=== PATIENT | female | born 1970 | race Caucasian/White ===

== ENCOUNTER 2024-07-03 14:38 | Emergency (ER) | payer OTHER, SELFPAY ==
[2024-07-03] VITALS (8 sets, daily range): BP systolic 134–210; BP diastolic 87–104; PULSE 98–134; RESP 9–18; TEMP 37–37.1; O2SAT 95–100; BMI 29.0
--- NOTE | 2024-07-03 15:01 | ED_ITS ---
Discharge Plan Disposition Patient Disposition: Home, Self-Care Condition: Good Prescriptions Prescriptions: New hydroxyzine HCl 25 mg tablet 25 mg PO Q6H PRN (Reason: nausea and vomiting) Qty: 100 0RF Referrals Follow up/Referrals: Provider,Referral, MD [Referring] - See instructions Activity Restrictions/Add. Instructions Additional Instructions/Restrictions: Follow-up with your primary care provider in the next week for reevaluation as well as annual physical and additional laboratory workup. Take the hydroxyzine every 6 hours as needed. If this medication seems to help you, have your primary care doctor continue it. If you do not feel that it works for you, you can stop taking it at any point. Please return to ED if your symptoms worsen, change in location, change in severity, new symptoms develop or if you become concerned for your health. Clinical Impressions Clinical Impression: Anxiety, Palpitations Instructions Patient Instructions: DI for Anxiety -- Adult Print Language Print Language: Turkmen Discharge ED Provider: Sintia Kang General Adult HPI <Cherrie Hernandez DO - Last Filed: 07/03/24 15:07> General Chief complaint: Arrhythmia/Palpitations Stated complaint: High BP, Tingling, Anxiety Time Seen by Provider: 07/03/24 14:49 History of Present Illness HPI narrative: This patient is a 53-year-old female who denies significant past medical history but does not follow regularly with a doctor presenting to the emergency department for evaluation of concern for anxiety, palpitations, high heart rate, and high blood pressure. She notes that this started a week ago when she took some [id number] cold medications for upper respiratory infection, and she thought that maybe was because of that so she stopped taking it and did not take it again. She denies taking any medications at home currently aside from taking ashwagandha as a supplement, which she has done for a long time with no recent changes in her routine or dosage. She does note a lot of recent emotional stressors. No fevers, cough, congestion, chest pain, shortness of breath, abdominal pain, nausea vomiting or changes bowel movements, leg pain or swelling, or other concerns. Related Data Previous Rx's ?Medication ?Instructions ?Recorded hydroxyzine HCl 25 mg tablet 25 mg PO Q6H PRN nausea and 07/03/24 vomiting #100 tabs Allergies Allergy/AdvReac Type Severity Reaction Status Date / Time Penicillin Allergy Unknown Uncoded 12/19/17 14:44 [facility] <Cherrie Hernandez DO - Last Filed: 07/03/24 15:07> [facility] Disclaimer: The information contained in this section may have been updated after the patient was seen, as this information can be updated by other users. Social History (Updated 07/03/24 @ 15:07 by Cherrie Hernandez DO) Smoking Status: Never smoker alcohol intake: never current occupational status: employed Travel in the last 8 weeks?: None Have you lived/traveled outside [place] in past 30 days?: No Contact w/someone who lives/traveled outside [place] past 30 days?: No Exposure to someone with infectious disease in past 14 days?: No Do you have a fever (greater than 100.4 F or 38 C)?: No Have you tested positive for COVID-19?: No Exposed to someone with COVID-19 in past 14 days?: No Do you have a sore throat?: No Do you have a cough?: No Do you have any weakness?: No Do you have any diarrhea?: No Are you experiencing any unusual bleeding?: No Do you have any muscle aches/pain?: No Do you have any abdominal pain?: No Are you experiencing loss of taste or smell?: No <Cherrie Hernandez DO - Last Filed: 07/03/24 15:07> ROS Obtained: Yes All systems reviewed & no additional complaints except as documented Physical Exam <Cherrie Hernandez DO - Last Filed: 07/03/24 15:07> General General appearance: alert, in no apparent distress and anxious Head Head exam: atraumatic and normocephalic Eye Eye exam: Present normal appearance, PERRL and EOMI ENT ENT exam: Present normal exam, normal oropharynx, mucous membranes moist and normal external ear exam Neck Neck exam: Present normal inspection, full ROM and trachea midline; Absent tenderness Chest Chest inspection: Present normal inspection and symmetric chest wall rise; Absent tenderness Respiratory Respiratory exam: Present normal lung sounds bilaterally; Absent respiratory distress, wheezes, stridor or accessory muscle use Cardiovascular Cardiovascular exam: Present normal rhythm and tachycardia Abdominal Exam Abdominal exam: Present soft; Absent distention, tenderness or guarding Extremities Exam Extremities exam: Present normal inspection, full ROM and normal capillary refill; Absent tenderness or edema Back Exam Back exam: Present normal inspection and full ROM; Absent tenderness Neurological Exam Neurological exam: Present alert, oriented X3, CN II-XII intact and normal gait; Absent motor sensory deficit Psychiatric Psychiatric exam: Present anxious Skin Skin exam: Present warm and dry Medical Decision Making <Cherrie Hernandez, DO - Last Filed: 07/03/24 15:07> Medical Records Medical records reviewed: Yes I reviewed the patient's medical records. Screening: Per USPSTF and CDC recommendations, given the prevalence of disease in our region, it is our hospital?s policy to screen for HIV and viral Hepatitis for all patients aged 18 and over and those with ongoing risk factors. Heriberto Inquiry Pt receiving controlled substance: No Vital Signs: 07/03/24 14:45 07/03/24 15:09 07/03/24 15:30 Temperature 98.6 F Temperature Source Oral Pulse Rate 103 H 101 H Pulse Rate [Left Radial] 134 H Respiratory Rate 18 14 Blood Pressure 199/101 H 210/103 H Blood Pressure [Right Arm] 134/87 Blood Pressure Mean Blood Pressure Mean [Right Arm] 102 Blood Pressure Source Blood Pressure Source [Right Arm] Automatic Cuff Blood Pressure Position Blood Pressure Position [Right Arm] Sitting 02 Sat by Pulse Oximetry 98 100 100 Oxygen Delivery Method Room Air Room Air Room Air 07/03/24 16:00 07/03/24 16:30 07/03/24 17:00 Temperature Temperature Source Pulse Rate 101 H 102 H 98 H Pulse Rate [Left Radial] Respiratory Rate 12 Blood Pressure 193/102 H 164/104 H 182/94 H Blood Pressure [Right Arm] Blood Pressure Mean 134 Blood Pressure Mean [Right Arm] Blood Pressure Source Blood Pressure Source [Right Arm] Blood Pressure Position Blood Pressure Position [Right Arm] 02 Sat by Pulse Oximetry 100 100 99 Oxygen Delivery Method 07/03/24 17:30 07/03/24 18:14 Temperature 98.7 F Temperature Source Oral Pulse Rate 103 H 100 H Pulse Rate [Left Radial] Respiratory Rate 9 L 10 L Blood Pressure 165/93 H 156/89 H Blood Pressure [Right Arm] Blood Pressure Mean 132 Blood Pressure Mean [Right Arm] Blood Pressure Source Automatic Cuff Blood Pressure Source [Right Arm] Blood Pressure Position Sitting Blood Pressure Position [Right Arm] 02 Sat by Pulse Oximetry 95 Oxygen Delivery Method Room Air Lab Data Lab results reviewed: Yes I reviewed the patient's lab results. Lab Results 07/03/24 15:05: WBC 10.1, RBC 5.48 H, Hgb 16.3 H, Hct 47.6 H, MCV 86.9, MCH 29.7, MCHC 34.2, RDW 12.4, Plt Count 408, MPV 9.3, Neut % (Auto) 72.6, Lymph % (Auto) 19.7, Mckenzie % (Auto) 6.5, Eos % (Auto) 0.2, Baso % (Auto) 0.8, Neut # (Auto) 7.4, Lymph # (Auto) 2.0, Mckenzie # (Auto) 0.7, Eos # (Auto) 0.0, Baso # (Auto) 0.1, D-Dimer 0.46, Sodium 138, Potassium 3.5, Chloride 100, Carbon Dioxide 30, Anion Gap 11.5, BUN 9, Creatinine 0.80, Estimated GFR 75, Est GFR ( Amer) 90, Glucose 119 H, Calcium 10.1, Magnesium 2.3, Total Bilirubin 0.5, AST 57 H, ALT 69, Alkaline Phosphatase 85, Troponin I < 0.01, Total Protein 8.8 H, Albumin 5.3 H, Globulin 3.5 H, Albumin/Globulin Ratio 1.5, TSH 3.71, T hyroxine (T4) 13.5 H 07/03/24 15:05 07/03/24 15:05 Orders (Tests/Meds): ED MEDICATIONS Discontinued Medications Generic Name Dose Route Start Last Admin Trade Name Freq PRN Reason Stop Dose Admin Lactated Ringer's 1,000 mls @ 999 mls/hr 07/03/24 14:56 07/03/24 16:11 Lactated Ringer's 1000 Ml Bag IV 07/03/24 15:56 999 mls/hr .Q1H1M ONE Administration Lorazepam 1 mg 07/03/24 14:56 07/03/24 16:10 Lorazepam 2mg/Ml Vial IV 07/03/24 14:57 1 mg ONCE ONE Administration Sodium Chloride 10 ml 07/03/24 14:56 Sodium Chloride 0.9% 10ml Vial IV 08/02/24 14:55 NEEDED PRN to Dilute Lorazepam inj ORDERS Category Date Time Status Complete Blood Count Auto Diff Stat Lab 07/03/24 15:05 Completed Comprehensive Metabolic Panel Stat Lab 07/03/24 15:05 Completed D-Dimer Stat Lab 07/03/24 15:05 Completed MAG [Magnesium] Stat Lab 07/03/24 15:05 Completed T4 (Thyroxine) Stat Lab 07/03/24 15:05 Completed TSH [Thyroid Stimulating Hormone] Stat Lab 07/03/24 15:05 Completed Trop I [Troponin I] Stat Lab 07/03/24 15:05 Completed Medical Decision Narrative: In summary, this patient is a 53-year-old female presenting to the Emergency Department for evaluation of anxiety, palpitations, high heart rate, high blood pressure. Differential diagnoses considered include but are not limited to hyperthyroidism, anxiety, panic attacks, dysrhythmia, electrolyte derangements. Ruling out the most morbid conditions drove assessment. On exam, the patient is very anxious appearing, tearful, actively crying. She is tachycardic with heart rate in the 120s to 130s but otherwise vitals are reassuring cardiac telemetry. No hypoxia or significant increased work of breathing. Cardiopulmonary and abdominal exams are benign. I feel present is the likely manifestation of anxiety, but will perform workup to rule out organic causes. Workup included CBC, CMP, troponin, TSH, T4, magnesium, D-dimer, EKG. Patient was given a bolus of IV fluids as well as IV Ativan for symptomatic improvement. Patient care signed out the oncoming provider, Dr. Kang, pending workup and disposition. <Sintia Kang MD - Last Filed: 07/03/24 23:53> Vital Signs: 07/03/24 14:45 07/03/24 15:09 07/03/24 15:30 Temperature 98.6 F Temperature Source Oral Pulse Rate 103 H 101 H Pulse Rate [Left Radial] 134 H Respiratory Rate 18 14 Blood Pressure 199/101 H 210/103 H Blood Pressure [Right Arm] 134/87 Blood Pressure Mean Blood Pressure Mean [Right Arm] 102 Blood Pressure Source Blood Pressure Source [Right Arm] Automatic Cuff Blood Pressure Position Blood Pressure Position [Right Arm] Sitting 02 Sat by Pulse Oximetry 98 100 100 Oxygen Delivery Method Room Air Room Air Room Air 07/03/24 16:00 07/03/24 16:30 07/03/24 17:00 Temperature Temperature Source Pulse Rate 101 H 102 H 98 H Pulse Rate [Left Radial] Respiratory Rate 12 Blood Pressure 193/102 H 164/104 H 182/94 H Blood Pressure [Right Arm] Blood Pressure Mean 134 Blood Pressure Mean [Right Arm] Blood Pressure Source Blood Pressure Source [Right Arm] Blood Pressure Position Blood Pressure Position [Right Arm] 02 Sat by Pulse Oximetry 100 100 99 Oxygen Delivery Method 07/03/24 17:30 07/03/24 18:14 Temperature 98.7 F Temperature Source Oral Pulse Rate 103 H 100 H Pulse Rate [Left Radial] Respiratory Rate 9 L 10 L Blood Pressure 165/93 H 156/89 H Blood Pressure [Right Arm] Blood Pressure Mean 132 Blood Pressure Mean [Right Arm] Blood Pressure Source Automatic Cuff Blood Pressure Source [Right Arm] Blood Pressure Position Sitting Blood Pressure Position [Right Arm] 02 Sat by Pulse Oximetry 95 Oxygen Delivery Method Room Air Lab Data Lab Results 07/03/24 15:05: WBC 10.1, RBC 5.48 H, Hgb 16.3 H, Hct 47.6 H, MCV 86.9, MCH 29.7, MCHC 34.2, RDW 12.4, Plt Count 408, MPV 9.3, Neut % (Auto) 72.6, Lymph % (Auto) 19.7, Mckenzie % (Auto) 6.5, Eos % (Auto) 0.2, Baso % (Auto) 0.8, Neut # (Auto) 7.4, Lymph # (Auto) 2.0, Mckenzie # (Auto) 0.7, Eos # (Auto) 0.0, Baso # (Auto) 0.1, D-Dimer 0.46, Sodium 138, Potassium 3.5, Chloride 100, Carbon Dioxide 30, Anion Gap 11.5, BUN 9, Creatinine 0.80, Estimated GFR 75, Est GFR ( Amer) 90, Glucose 119 H, Calcium 10.1, Magnesium 2.3, Total Bilirubin 0.5, AST 57 H, ALT 69, Alkaline Phosphatase 85, Troponin I < 0.01, Total Protein 8.8 H, Albumin 5.3 H, Globulin 3.5 H, Albumin/Globulin Ratio 1.5, TSH 3.71, T hyroxine (T4) 13.5 H Orders (Tests/Meds): ED MEDICATIONS Discontinued Medications Generic Name Dose Route Start Last Admin Trade Name Freq PRN Reason Stop Dose Admin Lactated Ringer's 1,000 mls @ 999 mls/hr 07/03/24 14:56 07/03/24 16:11 Lactated Ringer's 1000 Ml Bag IV 07/03/24 15:56 999 mls/hr .Q1H1M ONE Administration Lorazepam 1 mg 07/03/24 14:56 07/03/24 16:10 Lorazepam 2mg/Ml Vial IV 07/03/24 14:57 1 mg ONCE ONE Administration Sodium Chloride 10 ml 07/03/24 14:56 Sodium Chloride 0.9% 10ml Vial IV 08/02/24 14:55 NEEDED PRN to Dilute Lorazepam inj ORDERS Category Date Time Status Complete Blood Count Auto Diff Stat Lab 07/03/24 15:05 Completed Comprehensive Metabolic Panel Stat Lab 07/03/24 15:05 Completed D-Dimer Stat Lab 07/03/24 15:05 Completed MAG [Magnesium] Stat Lab 07/03/24 15:05 Completed T4 (Thyroxine) Stat Lab 07/03/24 15:05 Completed TSH [Thyroid Stimulating Hormone] Stat Lab 07/03/24 15:05 Completed Trop I [Troponin I] Stat Lab 07/03/24 15:05 Completed Medical Decision Narrative: In summary, this patient is a 53-year-old female presenting to the Emergency Department for evaluation of anxiety, palpitations, high heart rate, high blood pressure. Differential diagnoses considered include but are not limited to hyperthyroidism, anxiety, panic attacks, dysrhythmia, electrolyte derangements. Ruling out the most morbid conditions drove assessment. On exam, the patient is very anxious appearing, tearful, actively crying. She is tachycardic with heart rate in the 120s to 130s but otherwise vitals are reassuring cardiac telemetry. No hypoxia or significant increased work of breathing. Cardiopulmonary and abdominal exams are benign. I feel present is the likely manifestation of anxiety, but will perform workup to rule out organic causes. Workup included CBC, CMP, troponin, TSH, T4, magnesium, D-dimer, EKG. Patient was given a bolus of IV fluids as well as IV Ativan for symptomatic improvement. Patient care signed out the oncoming provider, Dr. Kang, pending workup and disposition. Jorge Luis: On my assumption of care, patient resting with heart rates closer to 100. She does not appear to be in any distress. Patient's labs demonstrated no leukocytosis, increased hemoglobin of 16.3, no thrombocytopenia. Patient's D- dimer was negative. CMP with no actionable findings. TSH normal with free T4 slightly elevated. Troponin negative. Patient advised to follow-up with her primary care provider for additional testing. We discussed starting hydroxyzine in the interim to which patient agreed. Patient ultimately discharged in stable condition. Sintia Kang MD Critical Care <Cherrie Hernandez, - Last Filed: 07/03/24 15:07> Critical Care Time Critical Care Time: No
--- NOTE | 2024-07-03 15:06 | ECG_ITS ---
APPROVED REPORT Exam: Resting ECG HR:99 bpm ECG Measurements Heart Rate 99 AXES MA 170 P 70 QRSd 88 QRS 78 QT 328 T 62 QTc 385 Conclusion SINUS RHYTHM MODERATE ST DEPRESSION [0.05+ mV ST DEPRESSION] ABNORMAL ECG UNCONFIRMED REPORT Electronically signed by : MIRIAN ARCHULETA, 07/06/2024 23:45:50
[2024-07-03 15:13] LABS: Basophils # 0.1 K/mm3 (0-0.2); Basophils % 0.8 % (0.1-2.0); Eosinophils % 0.2 % (0.1-12.0); Hematocrit 47.6 % (37.0-47.0); Hemoglobin 16.3 g/dL (12.2-16.2); Immature Granulocytes # 0.02 10^3uL; Immature Granulocytes % 0.2 %; Lymphocytes % 19.7 % (10-50); Mean Corpuscular HGB Conc 34.2 g/dL (31.8-35.4); Mean Corpuscular Hemoglobin 29.7 pg (27.0-31.2); Mean Corpuscular Volume 86.9 fl (81-99); Mean Platelet Volume 9.3 fl (7.4-10.4); Monocytes # 0.7 K/mm3 (0.1-1.0); Monocytes % 6.5 % (1.7-9.3); Neutrophils # 7.4 K/mm3 (1.8-7.8); Neutrophils % 72.6 % (37.0-80.0); Nucleated Red Blood Cells # 0 10^3/uL; Nucleated Red Blood Cells % 0 %; Platelet Count 408 K/mm3 (142-424); Red Blood Count 5.48 M/mm3 (4.20-5.40); Red Cell Distribution Width 12.4 % (11.5-17.5); Red Cell Distribution Width-SD 39.3 fL; White Blood Count 10.1 K/mm3 (4.8-10.8)
[2024-07-03 15:23] LABS: Alanine Aminotransferase 69 U/L (12-78); Albumin Level 5.3 g/dl (3.5-5.0); Albumin/Globulin Ratio 1.5 (1.1-1.8); Alkaline Phosphatase 85 U/L (38-126); Anion Gap 11.5 mEq/L (5-15); Aspartate Amino Transferase 57 U/L (14-36); Bilirubin,Total 0.5 mg/dl (0.2-1.3); Blood Urea Nitrogen 9 mg/dl (7-17); Calcium 10.1 mg/dl (8.4-10.2); Carbon Dioxide 30 mmol/L (22.0-30.0); Chloride 100 mmol/L (98-107); Estimated Glomerular Filt Rate 75 ml/min (>60); GFR (African American) 90 ML/MIN (>60); Globulin 3.5 g/dL (1.3-3.2); Glucose 119 mg/dl (74-100); Magnesium 2.3 mg/dl (1.6-2.3); Potassium 3.5 mmoL/L (3.5-5.1); Sodium 138 mmol/L (136-145); Total Protein,Serum 8.8 g/dl (6.3-8.2)
[2024-07-03 15:27] LABS: D-Dimer 0.46 ug/mL (0.0-0.5)
[2024-07-03 15:41] LABS: T4 (Thyroxine) 13.5 ug/dl (5.53-11.0)
[2024-07-03 15:45] LABS: Troponin I < 0.01 ng/ml (0.00-0.034)
[2024-07-03 15:55] LABS: Thyroid Stimulating Hormone 3.71 uIU/mL (0.465-4.68)
[2024-07-03] MEDS: LORazepam 2MG/ML VIAL 1 MG IV (16:10)
[2024-07-03] MEDS: LACTATED RINGERS 1000ML 1,000 ML 999 ML IV (16:11)
--- NOTE | 2024-07-03 17:29 | PC.NURSE ---
rounded on patient, no needs voiced at this time.
--- NOTE | 2024-07-03 17:58 | PC.NURSE ---
pt rounded on no needs at this time.
== END 2024-07-03 18:15 | disposition home or self-care (01) ==
PROVIDERS: Emergency Medicine; Emergency Provider Student in an Organized Health Care Education/Training Program; PCP Internal Medicine
DX: R00.2 Palpitations (principal); R00.0 Tachycardia, unspecified; R03.0 Elevated blood-pressure reading, without diagnosis of hypertension; F41.9 Anxiety disorder, unspecified
CPT/HCPCS: 80053; 83735; 84436; 84443; 84484; 85025; 85378; 93005; 96361; 96374; 99284; J2060; J7120

== ENCOUNTER 2024-11-08 10:17 | Outpatient (CLI) | payer OTHER, SELFPAY ==
--- NOTE | 2024-11-08 16:43 | ECG_ITS ---
APPROVED REPORT Exam: Resting ECG HR:104 bpm ECG Measurements Heart Rate 104 AXES TX 140 P 41 QRSd 92 QRS 34 QT 329 T 54 QTc 390 Conclusion SINUS TACHYCARDIA POSSIBLE LEFT ATRIAL ENLARGEMENT [-0.1mV P-WAVE IN V1/V2] MODERATE ST DEPRESSION [0.05+ mV ST DEPRESSION] ABNORMAL ECG No STEMI Electronically signed by : EDUARDO MCCAIN, 11/09/2024 00:55:02
== END 2024-11-08 23:59 | disposition home or self-care (01) ==
LOC: LAB.DROPOF 11-10 10:18
PROVIDERS: PCP Internal Medicine; Visit Provider Nurse Practitioner Family
DX: R69 Illness, unspecified (principal)
CPT/HCPCS: 93005

== ENCOUNTER 2024-11-08 16:16 | Emergency (ER) | payer OTHER, SELFPAY ==
[2024-11-08] VITALS (11 sets, daily range): BP systolic 179–219; BP diastolic 95–130; PULSE 91–113; RESP 10–25; TEMP 36.6–36.7; O2SAT 97–99; BMI 29.9
--- NOTE | 2024-11-08 16:31 | XR_ITS ---
PROCEDURE INFORMATION: Exam: XR Chest Exam date and time: 11/08/2024 4:56 PM Age: 54 years old Clinical indication: Pain; Chest pressure; Additional info: HTN cp TECHNIQUE: Imaging protocol: Radiologic exam of the chest. Views: 1 view. Total images: 1 COMPARISON: No relevant prior studies available. FINDINGS: Lungs: Granulomatous density noted within the left upper lobe. Pleural spaces: No pleural effusion. No pneumothorax. Heart/Mediastinum: No cardiomegaly. Bones/joints: Unremarkable. IMPRESSION: No acute cardiopulmonary abnormalities.
--- NOTE | 2024-11-08 16:32 | ED_ITS ---
<Statement entered by Walker Dill DO - 11/08/24 23:48> I was consulted by the SHANNAN, and we discussed the complexity of problems being addressed. I approved the treatment and management plan for this patient's care in the emergency department, thus performing a substantive portion of the medical decision making. Walker Dill DO Discharge Plan Disposition Patient Disposition: Home, Self-Care Prescriptions Prescriptions: New hydroxyzine HCl 25 mg tablet 25 mg PO BID PRN (Reason: anxiety) 10 Days Qty: 20 0RF carvedilol 12.5 mg tablet 12.5 mg PO ONCE 14 Days Qty: 14 0RF Rx Instructions: must administer with a meal/food No Action hydroxyzine HCl 25 mg tablet 25 mg PO Q6H PRN (Reason: nausea and vomiting) 7 Days Qty: 42 0RF Referrals Follow up/Referrals: Camacho Ball MD [Primary Care Provider, Medical] - See instructions Eric Iniguez DO [Staff Physician, Family Practice] - See instructions Activity Restrictions/Add. Instructions Additional Instructions/Restrictions: Today you were evaluated in the emergency department. Your blood pressure was high, you were given a dose of carvedilol which helped with your hypertension. You were also given hydroxyzine for anxiety. Please take these medications as directed. Please call Dr. Iniguez listed above for a primary care appointment. Remember to keep a log of your blood pressures. Return to the ED for any worsening of your condition. L Clinical Impressions Clinical Impression: Anxiety, Elevated blood pressure reading Instructions Patient Instructions: Anxiety Disorders, DI for High Blood Pressure Print Language Print Language: Citizen Of [place] Discharge ED Provider: Walker Dill HPI <Hali Sandoval APRN - Last Filed: 11/08/24 20:36> General Chief Complaint: Anxiety Stated Complaint: High blood pressure Time Seen by Provider: 11/08/24 16:24 History of Present Illness HPI narrative: patient is a 54-year-old female with no significant past medical history who presents to the ED for complaints of anxiety and elevated blood pressure. Patient states that she went to urgent care today for her anxiety, was sent to the ED for further evaluation. Patient states she was evaluated in June for anxiety, given a prescription for hydroxyzine which helps her symptoms. She is not established with a PCP, has never been diagnosed with hypertension or anxiety officially. Related Data Previous Rx's ?Medication ?Instructions ?Recorded carvedilol 12.5 mg tablet 12.5 mg PO ONCE 14 days #14 tabs 11/08/24 hydroxyzine HCl 25 mg tablet 25 mg PO BID PRN anxiety 10 days 11/08/24 #20 tabs hydroxyzine HCl 25 mg tablet 25 mg PO Q6H PRN nausea a nd 11/08/24 vomiting 7 days #42 tabs Allergies Allergy/AdvReac Type Severity Reaction Status Date / Time Penicillin Allergy Unknown Uncoded 02/13/17 14:44 PFSH <Hali Sandoval APRN - Last Filed: 11/08/24 20:36> [facility] Disclaimer: The information contained in this section may have been updated after the patient was seen, as this information can be updated by other users. Social History Smoking Status: Never smoker alcohol intake: never current occupational status: employed Travel in the last 8 weeks?: None Have you lived/traveled outside [place] in past 30 days?: No Contact w/someone who lives/traveled outside US past 30 days?: No Exposure to someone with infectious disease in past 14 days?: No Do you have a fever (greater than 100.4 F or 38 C)?: No Have you tested positive for COVID-19?: No Exposed to someone with COVID-19 in past 14 days?: No Do you have a sore throat?: No Do you have a cough?: No Do you have any weakness?: No Do you have any diarrhea?: No Are you experiencing any unusual bleeding?: No Do you have any muscle aches/pain?: No Do you have any abdominal pain?: No Are you experiencing loss of taste or smell?: No <Hali Sandoval APRN - Last Filed: 11/08/24 20:36> ROS Obtained: Yes Systems reviewed as appropriate & no additional complaints except as documented Physical Exam <Hali Sandoval APRN - Last Filed: 11/08/24 20:36> General General appearance: alert Head Head exam: atraumatic Eye Eye exam: Present PERRL and EOMI; Absent nystagmus ENT ENT exam: Present normal exam Neck Neck exam: Present full ROM Chest Chest inspection: Present normal inspection Respiratory Respiratory exam: Present normal lung sounds bilaterally Cardiovascular Cardiovascular exam: Present tachycardia Abdominal Exam Abdominal exam: Present soft; Absent tenderness Extremities Exam Extremities exam: Present full ROM Back Exam Back exam: Present full ROM Neurological Exam Neurological exam: Present alert, oriented X3 and normal gait; Absent motor sensory deficit Skin Skin exam: Present warm and dry HEART Score <Hali Sandoval APRN - Last Filed: 11/08/24 20:36> HEART Score HEART Score assessment performed?: No Critical Care <Hali Sandoval APRN - Last Filed: 11/08/24 20:36> Critical Care Time Critical Care Time: No Medical Decision Making <Hali Sandoval APRN - Last Filed: 11/08/24 20:36> [place] Inquiry Pt receiving controlled substance: No Vital Signs Vital Signs: 11/08/24 16:28 11/08/24 17:12 11/08/24 17:23 Temperature 97.9 F Temperature Source Oral Pulse Rate 105 H 108 H Pulse Rate [Right Radial] 113 H Respiratory Rate 15 25 H 12 Blood Pressure 190/117 H 181/104 H Blood Pressure [Right Arm] 213/130 H Blood Pressure Mean Blood Pressure Mean [Right Arm] 157 Blood Pressure Source Blood Pressure Source [Right Arm] Automatic Cuff Blood Pressure Position Blood Pressure Position [Right Arm] Supine 02 Sat by Pulse Oximetry 98 99 98 Oxygen Delivery Method Room Air 11/08/24 17:30 11/08/24 17:58 11/08/24 18:00 Temperature Temperature Source Pulse Rate 111 H 112 H 107 H Pulse Rate [Right Radial] Respiratory Rate 13 12 14 Blood Pressure 207/106 H 219/128 H 194/106 H Blood Pressure [Right Arm] Blood Pressure Mean Blood Pressure Mean [Right Arm] Blood Pressure Source Blood Pressure Source [Right Arm] Blood Pressure Position Blood Pressure Position [Right Arm] 02 Sat by Pulse Oximetry 98 98 97 Oxygen Delivery Method 11/08/24 18:45 11/08/24 19:00 11/08/24 19:09 Temperature Temperature Source Pulse Rate 107 H 106 H 101 H Pulse Rate [Right Radial] Respiratory Rate 17 14 14 Blood Pressure 208/116 H 203/129 H 189/106 H Blood Pressure [Right Arm] Blood Pressure Mean 141 153 135 Blood Pressure Mean [Right Arm] Blood Pressure Source Blood Pressure Source [Right Arm] Blood Pressure Position Blood Pressure Position [Right Arm] 02 Sat by Pulse Oximetry 98 99 99 Oxygen Delivery Method 11/08/24 19:24 11/08/24 20:05 Temperature 98.0 F Temperature Source Oral Pulse Rate 97 H 91 H Pulse Rate [Right Radial] Respiratory Rate 10 L 20 Blood Pressure 180/114 H 179/95 H Blood Pressure [Right Arm] Blood Pressure Mean 143 Blood Pressure Mean [Right Arm] Blood Pressure Source Automatic Cuff Blood Pressure Source [Right Arm] Blood Pressure Position Supine Blood Pressure Position [Right Arm] 02 Sat by Pulse Oximetry 99 Oxygen Delivery Method Room Air Lab Data Labs: Lab Results 11/08/24 16:45: WBC 8.5, RBC 5.28, Hgb 15.9, Hct 45.9, MCV 86.9, MCH 30.1, MCHC 34.6, RDW 12.7, Plt Count 290, MPV 9.8, Neut % (Auto) 64.1, Lymph % (Auto) 24.5, Mchenry % (Auto) 9.6 H, Eos % (Auto) 0.9, Baso % (Auto) 0.7, Neut # (Auto) 5.4, Lymph # (Auto) 2.1, Mchenry # (Auto) 0.8, Eos # (Auto) 0.1, Baso # (Auto) 0.1, D- Dimer 0.48, Sodium 139, Potassium 3.5, Chloride 99, Carbon Dioxide 28, Anion Gap 15.5 H, BUN 11, Creatinine 1.00, Estimated Creat Clear 82, Estimated GFR 58 L, Est GFR ( Amer) 70, Glucose 122 H, Calcium 10.0, Total Bilirubin 0.5, AST 59 H, ALT 60, Alkaline Phosphatase 83, Troponin I < 0.01, Total Protein 8.8 H, Albumin 4.9, Globulin 3.9 H, Albumin/Globulin Ratio 1.3, TSH 5.04 H 11/08/24 16:54: Free T4 1.28, HCV Ab BHARGAV w/Rflx PCR Qn Negative, HIV Ag/Ab Combo Qual Negative 11/08/24 : Urine Color Yellow, Urine Appearance Clear, Urine pH 7.0, Ur Specific [place] 1.010, Urine Protein Negative, Urine Glucose (UA) Negative, Urine Ketones Negative, Urine Blood Negative, Urine Nitrate Negative, Urine Bilirubin Negative, Urine Urobilinogen 0.2, Ur Leukocyte Esterase Negative, Urine RBC None, Urine WBC 3-5, Ur Squamous Epith Cells 3-5, Urine Bacteria 2+, Urine HCG, Qual Negative, Urine Opiates Screen Negative, Urine Methadone Screen Negative, Ur Barbituates Screen Negative, Ur Phencyclidine Scrn Negative, Ur Amphetamines Screen Negative, U Benzodiazepines Scrn Negative, Urine Cocaine Screen Negative, U Marijuana (THC) Screen Negative 11/08/24 16:45 11/08/24 16:45 Response Orders (Tests/Meds): ED MEDICATIONS Discontinued Medications Generic Name Dose Route Start Last Admin Trade Name Zelda PRN Reason Stop Dose Admin Carvedilol 12.5 mg 11/08/24 18:26 11/08/24 18:44 Carvedilol 12.5mg Tablet PO 11/08/24 18:27 12.5 mg ONCE ONE Administration Diazepam 2 mg 11/08/24 17:33 11/08/24 17:37 Diazepam 10mg/2ml Syringe IV 11/08/24 17:34 2 mg ONCE ONE Administration Hydroxyzine Pamoate 50 mg 11/08/24 16:31 11/08/24 16:43 Hydroxyzine Pamoate 25mg Capsule PO 11/08/24 16:32 50 mg ONCE ONE Administration ORDERS Category Date Time Status CXR --portable [XR chest portable] Stat Exams 11/08/24 16:31 Completed POCUS Point of Care (ER Only) Stat Exams 11/08/24 17:32 Completed CBC w/Auto Diff [Complete Blood Count Auto Diff] Stat Lab 11/08/24 16:45 Completed CMP [Comprehensive Metabolic Panel] Stat Lab 11/08/24 16:45 Completed D-Dimer Stat Lab 11/08/24 16:45 Completed Free T4 (Free Thyroxine) Stat Lab 11/08/24 16:54 Completed HIV Combo Stat Lab 11/08/24 16:54 Completed Hepatitis C Ab Qual. W/ RFX Stat Lab 11/08/24 16:54 Completed TSH [Thyroid Stimulating Hormone] Stat Lab 11/08/24 16:45 Completed Trop I [Troponin I] Stat Lab 11/08/24 16:45 Completed UDS [Drug Screen,Urine] Stat Lab 11/08/24 Completed Urinalysis and Microscopic Stat Lab 11/08/24 Completed Urine , HCG Qual. Stat Lab 11/08/24 Completed Urine Culture Stat Micro 11/08/24 Received MDM Narrative Medical Decision Narrative: In summary, patient is a 54-year-old female with no significant past medical history who presents to the ED for complaints of anxiety and elevated blood pressure. Patient states that she went to urgent care today for her anxiety, was sent to the ED for further evaluation. Patient states she was evaluated in June for anxiety, given a prescription for hydroxyzine which helps her symptoms. She is not established with a PCP, has never been diagnosed with hypertension or anxiety officially. Patient states that her symptoms started today while she was sitting at [employer] with her spouse, denies any issues or significant events. States she is unsure why she is feeling this way. She states that she feels tingly when her anxiety occurs. Patient is unsure what her blood pressure is normally as she does not typically check it. Denies fever, chills, headache, visual disturbance, neck pain, chest pain, shortness of breath, abdominal pain, nausea, vomiting, dysuria. Differential diagnosis include elevated blood pressure, ACS, electrolyte abnormality, infectious process, among others. Upon initial evaluation patient is alert, oriented and cooperative. She is hypertensive, systolic in the 200s, tachycardic, rate 115, normal physical exam other than tachycardia. Discussed with patient we will proceed with workup including troponin, EKG and chest x-ray. We will symptomatically manage with 50 mg of hydroxyzine. She is agreeable to plan of care at this time. Upon reassessment, patient states she continues to be anxious and she continues to be hypertensive. Will administer carvedilol 12.5 mg p.o. CBC unremarkable for any leukocytosis, stable H&H. CMP overall unremarkable. Urinalysis unremarkable for any infectious process, no urinary symptoms. UDS negative. Troponin < 0.01. dimer 0.48. TSH 5.04, free T4 1.28. Chest x-ray unremarkable for any acute findings. Upon reassessment, patient's systolic blood pressure is down to 174. She states that she is feeling better. Shared decision making used, we discussed prescription for carvedilol and hydroxyzine. I advised her that the carvedilol has obviously helped her elevated blood pressure, however she will need to continue to monitor her blood pressure in the morning and evening, keep a log and call Dr. Iniguez's office first thing Sunday morning for an appointment. I advised her to take the hydroxyzine as directed. We discussed other management of anxiety. We discussed strict return precautions to the ED and patient verbalized understanding. She was ambulatory upon leaving the ED without difficulty. <Walker Dill, DO - Last Filed: 11/08/24 23:24> Medical Records Medical records reviewed: Yes I reviewed the patient's medical records. Vital Signs Vital Signs: 11/08/24 16:28 11/08/24 17:12 11/08/24 17:23 Temperature 97.9 F Temperature Source Oral Pulse Rate 105 H 108 H Pulse Rate [Right Radial] 113 H Respiratory Rate 15 25 H 12 Blood Pressure 190/117 H 181/104 H Blood Pressure [Right Arm] 213/130 H Blood Pressure Mean Blood Pressure Mean [Right Arm] 157 Blood Pressure Source Blood Pressure Source [Right Arm] Automatic Cuff Blood Pressure Position Blood Pressure Position [Right Arm] Supine 02 Sat by Pulse Oximetry 98 99 98 Oxygen Delivery Method Room Air 11/08/24 17:30 11/08/24 17:58 11/08/24 18:00 Temperature Temperature Source Pulse Rate 111 H 112 H 107 H Pulse Rate [Right Radial] Respiratory Rate 13 12 14 Blood Pressure 207/106 H 219/128 H 194/106 H Blood Pressure [Right Arm] Blood Pressure Mean Blood Pressure Mean [Right Arm] Blood Pressure Source Blood Pressure Source [Right Arm] Blood Pressure Position Blood Pressure Position [Right Arm] 02 Sat by Pulse Oximetry 98 98 97 Oxygen Delivery Method 11/08/24 18:45 11/08/24 19:00 11/08/24 19:09 Temperature Temperature Source Pulse Rate 107 H 106 H 101 H Pulse Rate [Right Radial] Respiratory Rate 17 14 14 Blood Pressure 208/116 H 203/129 H 189/106 H Blood Pressure [Right Arm] Blood Pressure Mean 141 153 135 Blood Pressure Mean [Right Arm] Blood Pressure Source Blood Pressure Source [Right Arm] Blood Pressure Position Blood Pressure Position [Right Arm] 02 Sat by Pulse Oximetry 98 99 99 Oxygen Delivery Method 11/08/24 19:24 11/08/24 20:05 Temperature 98.0 F Temperature Source Oral Pulse Rate 97 H 91 H Pulse Rate [Right Radial] Respiratory Rate 10 L 20 Blood Pressure 180/114 H 179/95 H Blood Pressure [Right Arm] Blood Pressure Mean 143 Blood Pressure Mean [Right Arm] Blood Pressure Source Automatic Cuff Blood Pressure Source [Right Arm] Blood Pressure Position Supine Blood Pressure Position [Right Arm] 02 Sat by Pulse Oximetry 99 Oxygen Delivery Method Room Air Lab Data Labs: Lab Results 11/08/24 16:45: WBC 8.5, RBC 5.28, Hgb 15.9, Hct 45.9, MCV 86.9, MCH 30.1, MCHC 34.6, RDW 12.7, Plt Count 290, MPV 9.8, Neut % (Auto) 64.1, Lymph % (Auto) 24.5, [place] % (Auto) 9.6 H, Eos % (Auto) 0.9, Baso % (Auto) 0.7, Neut # (Auto) 5.4, Lymph # (Auto) 2.1, [place] # (Auto) 0.8, Eos # (Auto) 0.1, Baso # (Auto) 0.1, D- Dimer 0.48, Sodium 139, Potassium 3.5, Chloride 99, Carbon Dioxide 28, Anion Gap 15.5 H, BUN 11, Creatinine 1.00, Estimated Creat Clear 82, Estimated GFR 58 L, Est GFR ( Amer) 70, Glucose 122 H, Calcium 10.0, Total Bilirubin 0.5, AST 59 H, ALT 60, Alkaline Phosphatase 83, Troponin I < 0.01, Total Protein 8.8 H, Albumin 4.9, Globulin 3.9 H, Albumin/Globulin Ratio 1.3, TSH 5.04 H 11/08/24 16:54: Free T4 1.28, HCV Ab BHARGAV w/Rflx PCR Qn Negative, HIV Ag/Ab Combo Qual Negative 11/08/24 : Urine Color Yellow, Urine Appearance Clear, Urine pH 7.0, Ur Specific [place] 1.010, Urine Protein Negative, Urine Glucose (UA) Negative, Urine Ketones Negative, Urine Blood Negative, Urine Nitrate Negative, Urine Bilirubin Negative, Urine Urobilinogen 0.2, Ur Leukocyte Esterase Negative, Urine RBC None, Urine WBC 3-5, Ur Squamous Epith Cells 3-5, Urine Bacteria 2+, Urine HCG, Qual Negative, Urine Opiates Screen Negative, Urine Methadone Screen Negative, Ur Barbituates Screen Negative, Ur Phencyclidine Scrn Negative, Ur Amphetamines Screen Negative, U Benzodiazepines Scrn Negative, Urine Cocaine Screen Negative, U Marijuana (THC) Screen Negative Response Orders (Tests/Meds): ED MEDICATIONS Discontinued Medications Generic Name Dose Route Start Last Admin Trade Name Freq PRN Reason Stop Dose Admin Carvedilol 12.5 mg 11/08/24 18:26 11/08/24 18:44 Carvedilol 12.5mg Tablet PO 11/08/24 18:27 12.5 mg ONCE ONE Administration Diazepam 2 mg 11/08/24 17:33 11/08/24 17:37 Diazepam 10mg/2ml Syringe IV 11/08/24 17:34 2 mg ONCE ONE Administration Hydroxyzine Pamoate 50 mg 11/08/24 16:31 11/08/24 16:43 Hydroxyzine Pamoate 25mg Capsule PO 11/08/24 16:32 50 mg ONCE ONE Administration ORDERS Category Date Time Status CXR --portable [XR chest portable] Stat Exams 11/08/24 16:31 Completed POCUS Point of Care (ER Only) Stat Exams 11/08/24 17:32 Completed CBC w/Auto Diff [Complete Blood Count Auto Diff] Stat Lab 11/08/24 16:45 Completed CMP [Comprehensive Metabolic Panel] Stat Lab 11/08/24 16:45 Completed D-Dimer Stat Lab 11/08/24 16:45 Completed Free T4 (Free Thyroxine) Stat Lab 11/08/24 16:54 Completed HIV Combo Stat Lab 11/08/24 16:54 Completed Hepatitis C Ab Qual. W/ RFX Stat Lab 11/08/24 16:54 Completed TSH [Thyroid Stimulating Hormone] Stat Lab 11/08/24 16:45 Completed Trop I [Troponin I] Stat Lab 11/08/24 16:45 Completed UDS [Drug Screen,Urine] Stat Lab 11/08/24 Completed Urinalysis and Microscopic Stat Lab 11/08/24 Completed Urine , HCG Qual. Stat Lab 11/08/24 Completed Urine Culture Stat Micro 11/08/24 Received ECG Data Tracing #1: Attestation: I reviewed this ECG and interpreted as documented below: ECG Narrative: EKG personally interpreted by me and demonstrates sinus tachycardia at a rate of 104 bpm, normal axis, no DC prolongation, narrow QRS, no QTc prolongation. No ST elevation or depression. No overt signs of ischemia or arrhythmia
[2024-11-08 16:51] LABS: Microscopic, Urine URINE MICROSCOPIC (MICROSCOPIC)
[2024-11-08 16:57] LABS: Bilirubin,Urine Negative (Negative); Color,Urine YELLOW (Yellow); Glucose,Urine (UA) Negative (Negative); Ketones,Urine Negative (Negative); Leukocyte Esterase,Urine Negative (Negative); PH,Urine 7.0 (5.0-8.5); Protein,Urine Negative (Negative); Specific Gravity, Urine 1.010 (1.005-1.030); Urobilinogen,Urine 0.2 EU/dl (0.2)
[2024-11-08 17:01] LABS: Hematocrit 45.9 % (37.0-47.0); Hemoglobin 15.9 g/dL (12.2-16.2); Immature Granulocytes % 0.2 %; Mean Corpuscular HGB Conc 34.6 g/dL (31.8-35.4); Mean Corpuscular Hemoglobin 30.1 pg (27.0-31.2); Mean Corpuscular Volume 86.9 fl (81-99); Nucleated Red Blood Cells % 0 %; Platelet Count 290 K/mm3 (142-424); Red Blood Count 5.28 M/mm3 (4.20-5.40); Red Cell Distribution Width-SD 40.2 fL; White Blood Count 8.5 K/mm3 (4.8-10.8)
[2024-11-08 17:06] LABS: Urine Pregnancy, HCG Qual. Negative (Negative)
[2024-11-08 17:08] LABS: Albumin Level 4.9 g/dl (3.5-5.0); Chloride 99 mmol/L (98-107); Potassium 3.5 mmoL/L (3.5-5.1); Sodium 139 mmol/L (136-145)
[2024-11-08 17:11] LABS: Alanine Aminotransferase 60 U/L (12-78); Albumin/Globulin Ratio 1.3 (1.1-1.8); Alkaline Phosphatase 83 U/L (38-126); Anion Gap 15.5 mEq/L (5-15); Aspartate Amino Transferase 59 U/L (14-36); Bilirubin,Total 0.5 mg/dl (0.2-1.3); Blood Urea Nitrogen 11 mg/dl (7-17); Calcium 10.0 mg/dl (8.4-10.2); Carbon Dioxide 28 mmol/L (22.0-30.0); Creatinine Clearance Estimated 82 mL/min (50-200); Creatinine,Serum 1.00 mg/dl (0.52-1.04); Estimated Glomerular Filt Rate 58 ml/min (>60); GFR (African American) 70 ML/MIN (>60); Globulin 3.9 g/dL (1.3-3.2); Glucose 122 mg/dl (74-100); Total Protein,Serum 8.8 g/dl (6.3-8.2)
[2024-11-08 17:16] LABS: Bacteria,Urine 2+ /lpf
[2024-11-08 17:29] LABS: Free T4 (Free Thyroxine) 1.28 ng/dl (0.78-2.19)
[2024-11-08 17:34] LABS: Troponin I < 0.01 ng/ml (0.00-0.034)
[2024-11-08] MEDS: diazePAM 10MG/2ML SYRINGE 2 MG IV (17:37)
[2024-11-08 17:43] LABS: Thyroid Stimulating Hormone 5.04 uIU/mL (0.465-4.68)
[2024-11-08 17:48] LABS: D-Dimer 0.48 ug/mL (0.0-0.5)
--- NOTE | 2024-11-08 17:53 | PC.NURSE ---
pt reports minimal improvement after medication administration. spoke with provider
[2024-11-08 18:32] LABS: Barbiturates Screen,Urine Negative ng/ml (<200); Benzodiazepines Screen,Urine Negative ng/ml (<200)
[2024-11-08 18:33] LABS: Amphetamine/Metha Screen,Urine Negative ng/ml (<1000); Methadone Screen,Urine Negative ng/ml (<300)
[2024-11-08 18:35] LABS: Opiate Screen,Urine Negative ng/ml (<300)
[2024-11-08 18:36] LABS: Phencyclidine Screen,Urine Negative ng/ml (<25)
[2024-11-08 18:38] LABS: Hepatitis C Ab Qual. W/ RFX NEGATIVE (Negative)
[2024-11-08] MEDS: CARVEDILOL 12.5MG TABLET 12.5 MG PO (18:44)
== END 2024-11-08 20:06 | disposition home or self-care (01) ==
PROVIDERS: Nurse Practitioner; Emergency Provider Student in an Organized Health Care Education/Training Program; PCP Internal Medicine
DX: R00.0 Tachycardia, unspecified (principal); R03.0 Elevated blood-pressure reading, without diagnosis of hypertension; F41.9 Anxiety disorder, unspecified
CPT/HCPCS: 71045; 80053; 80307; 81001; 81025; 84439; 84443; 84484; 85025; 85378; 86803; 87086; 87389; 96374; 99285; J3360

== ENCOUNTER 2024-11-14 13:45 | Outpatient (CLI) | payer OTHER, SELFPAY | END 2024-11-14 23:59 | disposition home or self-care (01) | LOC: LAB.DROPOF 13:45 | PROVIDERS: PCP Internal Medicine; Visit Provider Internal Medicine | DX: I10 Essential (primary) hypertension (principal) | CPT/HCPCS: 36415; 82088; 84244 ==